=== PATIENT | male | born 1965 | race Caucasian/White ===

== ENCOUNTER 2016-06-21 21:06 | Emergency (ER) | payer OTHER ==
[~2016-06-21] VITALS: Ht 175.3 cm; Wt 87.0 kg
[2016-06-21 21:08] VITALS: BP 152/87; PULSE 71; RESP 16; TEMP 98.4; O2SAT 97
--- NOTE | 2016-06-21 21:25 | PD ---
Physical Exam Time Seen by Provider: 21:23 Narrative 51 y/o male with "tingling sensation" in hands and christianity 3 days ago, went to [facility], started on antihypertensive medications. Symptoms returned tonight. VSS seen at triage desk. Awaiting bed placement. Data Data Last Documented VS Vital Signs Date Time Temp Pulse Resp B/P Pulse Ox O2 Delivery O2 Flow Rate FiO2 06/21/16 21:08 98.4 71 16 152/87 97 MDM Medical Record Reviewed: Yes Supervised Visit with CHERELLE: Yes Scripts No Active Prescriptions or Reported Meds Steven Dean Jun 21, 2016 21:25
[2016-06-21] MEDS ORDERED: LISI-515 PO (23:24)
[2016-06-21 23:26] VITALS: BP 134/78; PULSE 60; RESP 18; O2SAT 98
--- NOTE | 2016-06-21 23:45 | PD ---
HPI Chief Complaint: Numbness/Tingling Time Seen by Provider: 23:20 Travel History International Travel<30 days: No Contact w/Intl Traveler<30days: No Traveled to known affect area: No History of Present Illness HPI The patient is a 51 year old male who presents to the [facility] emergency department with a history of intermittently since February having tingling sensations in his hands, feet, around his mouth, associated with tunnel vision, lightheaded sensation and clammy hands. When this occurs he reports that he has chest pressure and shortness of breath. The patient reports that the symptoms became so severe on Monday that he went to the emergency department at [place]. The patient reports that he was diagnosed with hypertension and started on lisinopril 20 mg. He reports that he underwent a workup including laboratory studies, chest x-ray, and a CT scan of the brain which was reportedly unremarkable. He reports that he has an appointment scheduled with his primary care physician, Dr. Clements for Monday. He reports that the symptoms recurred today in spite of taking the lisinopril. He reports that his blood pressure also went up to 160/103 prior to arrival. The patient reports that he was concerned as he does have a family history of stroke in his father. The patient reports that he did have some pressure in the midepigastric area associated with this. He denies having any hot or cold sensitivities. He denies having any nausea, vomiting, or diarrhea. He reports that he has been moving his bowels regularly. He denies having any weight gain. He reports that he has been trying to lose weight and has lost some purposefully. The patient denies any recent fevers, cough, congestion, neck pain, urinary symptoms, one-sided weakness, double vision or vision loss, facial droop, difficulty with word finding ability, or dizziness. [facility] Past Medical History Narrative Medical The patient's past medical history is significant for recently being diagnosed with high blood pressure, history of acid reflux. Diminished Hearing: No Hypertension: Yes Past Surgical History Narrative Surgical The patient denies any past surgical history. Surgical History: No Previous Surgery Social History Alcohol Use: Yes (WEEKENDS 12 PACK ) Tobacco Use: No Substance Use: No Allergies-Medications (Allergen,Severity, Reaction): Coded Allergies: No Known Allergies (Verified , 4/11/17) Reported Meds & Prescriptions Reported Meds & Active Scripts Active Reported Lisinopril 20 Mg Tab 20 Mg PO DAILY Review of Systems Except as stated in HPI: all other systems reviewed are Neg General / Constitutional: No: Fever Eyes: No: Visual changes HENT: No: Headaches, Neck Stiffness, Neck Pain Cardiovascular: Positive: Palpitations, No: Chest Pain or Discomfort Respiratory: No: Shortness of Breath Gastrointestinal: Positive: Indigestion, No: Nausea, Vomiting, Diarrhea, Abdominal Pain, Loss of Appetite Genitourinary: No: Dysuria Musculoskeletal: No: Pain Skin: No Rash Neurologic: Positive: Paresthesia, No: Weakness Psychiatric: No: Depression Endocrine: No: Polydipsia Hematologic/Lymphatic: No: Easy Bruising Physical Exam Narrative General: The patient is a well-developed well-nourished male in no acute distress. Head and Neck exam: Head is normocephalic atraumatic. Eyes: EOMI, pupils are equal round and reactive to light. Nose: Midline septum with pink mucous membranes Mouth: Dentition unremarkable. Moist mucus membranes. Posterior oropharynx is not erythematous. No tonsillar hypertrophy. Uvula midline. Airway patent. Neck: No palpable lymphadenopathy. No nuchal rigidity. No thyromegaly. Cardiovascular: Regular rate and rhythm without murmurs, gallops, or rubs. No pulse deficit to the extremities and simultaneous auscultation and palpation of his radial artery. Lungs: Clear to auscultation bilaterally. No wheezes, rhonchi, or rales. Abdomen: Soft, without tenderness to palpation in all 4 quadrants of the abdomen. No guarding, rebound, or rigidity. Normal bowel sounds are audible. No tenderness on palpation of McBurney's point. Negative Holliday's sign. Extremities: No clubbing, cyanosis, or edema. 2+ pulses in all 4 extremities. No calf tenderness on palpation. Back: No spinous process tenderness to palpation. No costovertebral angle tenderness to palpation. Neurologic Exam: Cranial nerves 2-12 were intact on exam. Strength is 5/5 in all 4 extremities. No sensory deficits noted. Skin Exam: No rash noted. Intact skin that is warm and dry. Data Data Last Documented VS Vital Signs Date Time Temp Pulse Resp B/P Pulse Ox O2 Delivery O2 Flow Rate FiO2 06/21/16 23:26 60 18 134/78 98 Room Air 06/21/16 21:08 98.4 Orders Complete Blood Count With Diff (06/21/16 23:33) Comprehensive Metabolic Panel (06/21/16 23:33) Creatine Kinase (Cpk) (06/21/16:33) Ckmb (Isoenzyme) Profile (06/21/16:33) Troponin I (06/21/16:33) Lipase (06/21/16:) Westergren Sedimentation Rate (06/21/16:) Magnesium (Mg) (06/21/16:) Thyroid Stimulating Hormone (06/21/16:33) Iv Access Insert/Monitor (06/21/16:33) Ecg Monitoring (06/21/16:) Oximetry (06/21/16:) Sodium Chlorid 0.9% 500 Ml Inj (Ns 500 M (06/22/16 00:45) Electrocardiogram (06/22/16 00:48) Labs Laboratory Tests Test 06/21/16 23:45 White Blood Count 8.2 TH/MM3 Red Blood Count 4.88 MIL/MM3 Hemoglobin 15.0 GM/DL Hematocrit 43.3 % Mean Corpuscular Volume 88.8 FL Mean Corpuscular Hemoglobin 30.8 PG Mean Corpuscular Hemoglobin 34.7 % Concent Red Cell Distribution Width 12.7 % Platelet Count 163 TH/MM3 Mean Platelet Volume 9.5 FL Neutrophils (%) (Auto) 63.9 % Lymphocytes (%) (Auto) 25.9 % Monocytes (%) (Auto) 8.9 % Eosinophils (%) (Auto) 0.6 % Basophils (%) (Auto) 0.7 % Neutrophils # (Auto) 5.3 TH/MM3 Lymphocytes # (Auto) 2.1 TH/MM3 Monocytes # (Auto) 0.7 TH/MM3 Eosinophils # (Auto) 0.1 TH/MM3 Basophils # (Auto) 0.1 TH/MM3 CBC Comment DIFF FINAL Differential Comment Sodium Level 137 MEQ/L Potassium Level 4.2 MEQ/L Chloride Level 103 MEQ/L Carbon Dioxide Level 26.0 MEQ/L Anion Gap 8 MEQ/L Blood Urea Nitrogen 22 MG/DL Creatinine 1.05 MG/DL Estimat Glomerular Filtration 75 ML/MIN Rate Random Glucose 101 MG/DL Calcium Level 9.6 MG/DL Magnesium Level 2.3 MG/DL Total Bilirubin 0.5 MG/DL Aspartate Amino Transf 20 U/L (AST/SGOT) Alanine Aminotransferase 34 U/L (ALT/SGPT) Alkaline Phosphatase 46 U/L Total Creatine Kinase 99 U/L Troponin I LESS THAN 0.02 NG/ML Total Protein 7.4 GM/DL Albumin 4.0 GM/DL Lipase 171 U/L Thyroid Stimulating Hormone 3.660 uIU/ML 3rd [facility] Medical Decision Making Medical Screen Exam Complete: Yes Emergency Medical Condition: Yes Medical Record Reviewed: Yes Differential Diagnosis Neuropathy, versus anxiety disorder, multiple sclerosis, versus other peripheral neuropathy, versus ALS Narrative Course During the course of the patients emergency department visit, the patients history, examination, and differential diagnosis were reviewed with the patient. The patient had IV access obtained and blood work sent for analysis. The patient was put on a sewer line photo inspector with oximetry and blood pressure monitoring. The patient was provided normal saline a 500 mL bolus when his BUN was noted to be slightly elevated. The patients laboratory studies were reviewed and remarkable for a CBC that is unremarkable, CMP is remarkable for a BUN of 22, GFR 75, CPK 99, troponin I less than 0.02 TSH 3.66, lipase 171. I recommended that the patient follow-up with his primary care physician for additional testing to include a B12 and folate level. We did discuss the fact that alcohol can also cause a peripheral neuropathy. I recommended he decrease his alcohol use. The patient is resting comfortably and feels better, is alert and in no distress. The patients results and examination findings were discussed with the patient. The repeat examination is unremarkable and benign. The history, exam, diagnostic testing, and current condition do not suggest any significant pathology to warrant further testing, continued ED treatment, admission, or surgical evaluation at this point. The vital signs have been stable. The patient does not have uncontrollable pain, intractable vomiting, or other significant symptoms. The patient's condition is stable and appropriate for discharge. The patient will pursue further outpatient evaluation with a primary care physician or other designated or consulting physician as indicated in the discharge instructions. The patient expressed understanding and was agreeable with this plan. Diagnosis Primary Impression: Paresthesias Referrals: Primary Care Physician 2 days Patient Instructions: General Instructions, Paresthesia (ED) Med/Other Pt SpecificInfo: No Change to Meds Disposition: 01 DISCHARGE HOME Condition: Stable Jia Burroughs MD Jun 21, 2016 23:45
[2016-06-22 00:01] LABS: AUTOMATED NEUTROPHIL # 5.3 TH/MM3 (1.8-7.7); BASOPHIL # 0.1 TH/MM3 (0-0.2); BASOPHIL % 0.7 % (0.0-2.0); EOSINOPHIL # 0.1 TH/MM3 (0-0.4); EOSINOPHIL % 0.6 % (0.0-4.0); HEMATOCRIT 43.3 % (39.0-51.0); HEMO FLAGS DIFF FINAL; LYMPH % 25.9 % (9.0-44.0); LYMPHOCYTE # 2.1 TH/MM3 (1.0-4.8); MEAN CELL VOLUME 88.8 FL (80.0-100.0); MEAN CORPUSCULAR HEMOGLOBIN 30.8 PG (27.0-34.0); MEAN CORPUSCULAR HGB CONC 34.7 % (32.0-36.0); MONO % 8.9 % (0.0-8.0); NEUT % 63.9 % (16.0-70.0); PLATELET COUNT 163 TH/MM3 (150-450); RED BLOOD COUNT 4.88 MIL/MM3 (4.50-5.90); RED CELL DISTRIBUTION WIDTH 12.7 % (11.6-17.2); WHITE BLOOD COUNT 8.2 TH/MM3 (4.0-11.0)
[2016-06-22 00:18] LABS: ANION GAP 8 MEQ/L (5-15); AST (GOT) 20 U/L (15-37); BLOOD UREA NITROGEN 22 MG/DL (7-18); CHLORIDE 103 MEQ/L (98-107); GLOMERULAR FILTRATION RATE 75 ML/MIN (>89); MAGNESIUM 2.3 MG/DL (1.5-2.5); POTASSIUM 4.2 MEQ/L (3.5-5.1); SODIUM (NA) 137 MEQ/L (136-145)
[2016-06-22 00:29] LABS: ALKALINE PHOSPHATASE 46 U/L (45-117); ALT (GPT) 34 U/L (12-78); TOTAL BILIRUBIN ADULT 0.5 MG/DL (0.2-1.0)
[2016-06-22 00:30] LABS: CREATINE KINASE 99 U/L (39-308)
[2016-06-22] MEDS ORDERED: SODIUM CHLORID 0.9% 500 ML INJ 500 ML IV ONE (00:45)
--- NOTE | 2016-06-22 11:52 | EKG ---
Date Performed: 06/22/2016 Time Performed: 00:59:24 PTAGE: 51 years EKG: SINUS BRADYCARDIA BORDERLINE ECG NO PREVIOUS TRACING DOCTOR: Yair Duarte Interpretating Date/Time 06/22/2016 11:50:39
== END 2016-06-22 01:46 | disposition home or self-care (01) ==
LOC: NEPE 21:06
DX: R20.2 Paresthesia of skin (principal); I10 Essential (primary) hypertension; R00.1 Bradycardia, unspecified; R42 Dizziness and giddiness; H53.489 Generalized contraction of visual field, unspecified eye; R07.89 Other chest pain; R06.02 Shortness of breath; Z87.19 Personal history of other diseases of the digestive system
CPT/HCPCS: 80053; 82550; 83690; 83735; 84443; 84484; 85025; 85652; 93005; 96360; 99284; J7040